=== PATIENT | male | born 1985 | race American Indian/Alaskan Native ===

== ENCOUNTER 2018-03-28 19:30 | Emergency (ER) | payer SELFPAY ==
[2018-03-28] MEDS ORDERED: TYLENOL PO ONE (21:01)
--- NOTE | 2018-03-28 21:06 | Emergency Department Report ---
HPI - General Chief Complaint: Headache Time Seen by Provider: 03/28/18 20:39 - HPI HPI: 33-year-old -[place] male presents to the emergency department from home with a complaint of a one-week history of a generalized headache. He says it is 9 out of 10 in intensity. He denies any vision change, slurred speech or any neurological deficits. He has not taken anything for her symptoms prior to presentation. He denies any past medical history but has some history of depression and/or psychiatric conditions. No recent travel or sick contacts at home. He denies having a primary care physician. ED Past Medical Hx - Past Medical History Previous Medical History?: Yes Hx Psychiatric Treatment: Yes - Surgical History Past Surgical History?: No - Social History Smoking Status: Current Every Day Smoker Substance Use Type: Marijuana ED Review of Systems ROS: Stated complaint: SEVERE HEADACHE Other details as noted in HPI Comment: All other systems reviewed and negative Constitutional: denies: chills, fever Eyes: denies: eye pain, eye discharge, vision change ENT: denies: ear pain, throat pain Respiratory: denies: cough, shortness of breath, wheezing Cardiovascular: denies: chest pain, palpitations Gastrointestinal: denies: abdominal pain, nausea, diarrhea Genitourinary: denies: urgency, dysuria Musculoskeletal: denies: back pain, joint swelling, arthralgia Skin: denies: rash, lesions Neurological: headache. denies: numbness Physical Exam - Physical Exam Vital Signs: Vital Signs 03/28/18 20:01 Temperature 98.8 F Pulse Rate 86 Respiratory 17 Rate Blood Pressure 111/81 O2 Sat by Pulse 98 Oximetry Physical Exam: GENERAL: The patient is well-developed well-nourished. HENT: Normocephalic. Atraumatic. Patient has moist mucous membranes. EYES: Extraocular motions are intact. Pupils equal reactive to light bilaterally. No nystagmus. NECK: Supple. Trachea is midline. CHEST/LUNGS: Clear to auscultation. There is no respiratory distress noted. HEART/CARDIOVASCULAR: Regular. There is no tachycardia. There is no murmur. ABDOMEN: Abdomen is soft, nontender. Patient has normal bowel sounds. SKIN: There is no rash. There is no edema. There is no diaphoresis. NEURO: The patient is awake, alert, and oriented. The patient is cooperative. The patient has no focal neurologic deficits. The patient has normal speech and gait. Cranial nerves II through XII grossly intact. No pronator drift. No dysmetria. MUSCULOSKELETAL: There is no tenderness or deformity. There is no limitation range of motion. There is no evidence of acute injury. ED Course Vital Signs 03/28/18 20:01 Temperature 98.8 F Pulse Rate 86 Respiratory 17 Rate Blood Pressure 111/81 O2 Sat by Pulse 98 Oximetry ED Medical Decision Making - Radiology Data Radiology results: report reviewed CT of the head does not show any acute intracranial process including no ischemia, shift, mass, bleeding or skull fracture. - Medical Decision Making Patient presents with a one-week history of a generalized headache. He has no focal, motor or sensory deficits and his cranial nerves are intact. CT of the head did not show any bleed, shift, mass, ischemia or any other acute intercranial process. While the patient complains of some discomfort he does not appear to be in any acute distress and is talking and joking around with his friends on the phone. He was given a dose of Tylenol and Toradol and upon reevaluation he is feeling improved. He appears safe for discharge home at this time. Vital signs stable throughout his ED course. He will be given a referral for some local primary care clinics. Instructed to return to the ER with any worsening of symptoms or any acute distress. - Differential Diagnosis tension headache, migraine, cluster headache, brain bleed Critical Care Time: No Critical care attestation.: If time is entered above; I have spent that time in minutes in the direct care of this critically ill patient, excluding procedure time. ED Disposition Clinical Impression: Headache Qualifiers: Headache type: unspecified Headache chronicity pattern: unspecified pattern Intractability: not intractable Qualified Code(s): R51 - Headache Disposition: DC-01 TO HOME OR SELFCARE Is pt being admited?: No Condition: Stable Instructions: Acute Headache (ED) Additional Instructions: Please follow up with a primary care physician in the next few days. Return to the emergency Department with any worsening of your symptoms or any acute distress. Referrals: PRIMARY MD ANGELLA [Primary Care Provider] - 3-5 Days [facility] [Outside] - 3-5 Days [facility] [Outside] - 3-5 Days [facility] [Outside] - 3-5 Days Time of Disposition: 22:42
--- NOTE | 2018-03-28 21:22 | Cat Scan Report ---
FINAL REPORT PROCEDURE: CT HEAD/BRAIN WO CON TECHNIQUE: Computerized tomography of the head was performed without contrast material. HISTORY: headache COMPARISON: No prior studies are available for comparison. FINDINGS: This study is limited due to motion artifacts. Skull and scalp: Normal. Paranasal sinuses: Normal. Ventricles and subarachnoid spaces: Normal. Cerebrum: No evidence of hemorrhage, acute infarction or mass . Cerebellum and brainstem: No evidence of hemorrhage, acute infarction or mass. Vasculature: Normal. Comments: None. IMPRESSION: No obvious acute intracranial abnormality
[2018-03-28] MEDS ORDERED: TORADOL IM ONE (21:36)
[2018-03-28 22:53] VITALS: BP 136/82
== END 2018-03-28 22:51 | disposition home or self-care (01) ==
LOC: ED 19:30
DX: R51 Headache (principal); F17.200 Nicotine dependence, unspecified, uncomplicated; F12.10 Cannabis abuse, uncomplicated
CPT/HCPCS: 70450; 96372; 99283; J1885